=== PATIENT | male | born 1960 | race Caucasian/White ===

== ENCOUNTER 2021-07-21 14:25 | Emergency (ER) | payer BC ==
[2021-07-21] MEDS ORDERED: Sodium Chloride 0.9% 10 ML Syringe FLUSH PRN (14:33)
[2021-07-21] MEDS ORDERED: Sodium Chloride 0.9% 1,000 ML IV SCH (14:45)
[2021-07-21] MEDS ORDERED: Ibuprofen 600 MG Tab PO ONE (17:33)
[2021-07-21] MEDS ORDERED: LORazepam 1 MG Tab PO ONE (19:35)
[2021-07-21] MEDS: LORazepam 1 MG Tab ONE ×2 (19:48→19:55)
== END 2021-07-21 20:45 | disposition home or self-care (01) ==
LOC: LB.ED 14:25
DX: T51.0X1A Toxic effect of ethanol, accidental (unintentional), initial encounter (principal); F10.129 Alcohol abuse with intoxication, unspecified; R41.82 Altered mental status, unspecified; Z72.0 Tobacco use; Z79.899 Other long term (current) drug therapy; Y90.8 Blood alcohol level of 240 mg/100 ml or more
CPT/HCPCS: 36415; 80053; 80307; 82947; 85025; 85610; 93005; 99284; A0425; A0429; A9270; J7030; 99282

== ENCOUNTER 2021-07-23 16:48 | Emergency (ER) | payer BC | END 2021-07-23 19:00 | disposition home or self-care (01) | LOC: LB.ED 16:48 | DX: F10.10 Alcohol abuse, uncomplicated (principal); Y90.8 Blood alcohol level of 240 mg/100 ml or more; Z79.899 Other long term (current) drug therapy; Z65.8 Other specified problems related to psychosocial circumstances | CPT/HCPCS: 36415; 80048; 80307; 84484; 85025; 93005; 99282; 99284-25 ==